=== PATIENT | female | born 2005 | race Caucasian/White ===

== ENCOUNTER 2024-05-07 12:28 | Emergency (ER) | payer SELFPAY ==
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
[2024-05-07 12:34] VITALS: BP 130/70; PULSE 89; RESP 16; TEMP 36.3; O2SAT 99; BMI 32.0
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
[2024-05-07 13:39] LABS: HCG Quantitative < 2 mIU/mL
[2024-05-07] MEDS: Ibuprofen 800 MG TABLET PO (14:23)
[2024-05-07] MEDS: Acetaminophen 325 MG TABLET 975 MG PO (14:24)
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
[2024-05-07 15:11] VITALS: BP 130/70; PULSE 89; RESP 16; TEMP 36.3; O2SAT 99
== END 2024-05-07 15:11 | disposition home or self-care (01) ==
PROVIDERS: Registered Nurse Emergency; Emergency Provider Emergency Medicine Emergency Medical Services
DX: S09.90XA Unspecified injury of head, initial encounter (principal); S93.402A Sprain of unspecified ligament of left ankle, initial encounter; V13.4XXA Pedal cycle driver injured in collision with car, pick-up truck or van in traffic accident, initial encounter; Y93.89 Activity, other specified; Y92.410 Unspecified street and highway as the place of occurrence of the external cause; Y99.9 Unspecified external cause status; M25.561 Pain in right knee; M25.572 Pain in left ankle and joints of left foot; M25.571 Pain in right ankle and joints of right foot
CPT/HCPCS: 36415; 70450; 72125; 73600; 73630; 84702; 96372; 99283; 99284

== ENCOUNTER 2024-05-13 23:00 | Emergency (ER) | payer SELFPAY ==
[2024-05-13 23:14] VITALS: BP 127/81; PULSE 85; RESP 18; TEMP 36.9; O2SAT 99; BMI 32.9
[2024-05-14 01:13] VITALS: BP 105/72; PULSE 77; RESP 16; TEMP 37.1; O2SAT 96
[2024-05-14 03:37] VITALS: BP 121/74; PULSE 89; RESP 16; TEMP 37.1; O2SAT 97
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
[2024-05-14] MEDS: Ketorolac Tromethamine 60 MG/2 ML VIAL IM (06:02)
[2024-05-14 06:19] VITALS: BP 121/74; PULSE 89; RESP 16; TEMP 37.1; O2SAT 97
== END 2024-05-14 06:20 | disposition home or self-care (01) ==
PROVIDERS: Emergency Provider Emergency Medicine
DX: S80.12XA Contusion of left lower leg, initial encounter (principal); V23.49XA Other motorcycle driver injured in collision with car, pick-up truck or van in traffic accident, initial encounter; M79.605 Pain in left leg; M79.604 Pain in right leg; Y93.89 Activity, other specified; Y92.9 Unspecified place or not applicable; Y99.9 Unspecified external cause status
CPT/HCPCS: 96372; 99284; J1885

== ENCOUNTER 2024-06-10 23:56 | Emergency (ER) | payer OTHER, SELFPAY ==
[2024-06-11 00:04] VITALS: BP 114/68; PULSE 73; RESP 18; TEMP 36.5; O2SAT 99; BMI 30.3
[2024-06-11 00:41] LABS: Basophils Absolute Auto 0.1 X10*3/uL (0.0-0.2); Basophils Percent Auto 0.5 % (0-2); Eosinophils Absolute Auto 0.2 X10*3/uL (0.0-0.4); Eosinophils Percent Auto 1.7 % (0-4); Hematocrit 40.6 % (37.0-47.0); Hemoglobin 13.2 g/dl (12.0-16.0); Imm Gran Abs Auto 0.03 X10*3/uL (0.00-0.03); Imm Gran Pct Auto 0.2 % (0.0-0.4); Lymphocytes Absolute Auto 4.6 X10*3/uL (1.2-4.9); Lymphocytes Percent Auto 34.7 % (20-40); MANUAL DIFF FLAG NO; Mean Corpuscular HGB Conc 32.5 g/dl (31.0-35.0); Mean Platelet Volume 9.2 fL (9.4-12.3); Monocytes Absolute Auto 0.9 X10*3/uL (0.1-1.2); Monocytes Percent Auto 6.7 % (2-11); Neutrophils Absolute Auto 7.4 x10*3/uL (2.0-8.3); Neutrophils Percent Auto 56.2 % (45-73); Platelet Count 341 X10*3/uL (160-400); Red Blood Count 4.89 X10*6/uL (4.20-5.50); Red Cell Distribution Width 14.4 % (11.0-16.0); White Blood Count 13.2 X10*3/uL (4.8-10.8)
[2024-06-11 01:03] LABS: Alanine Aminotransferase 14 U/L (0-31); Albumin Level 4.4 g/dL (3.5-5.0); Alkaline Phosphatase 103 U/L (39-117); Anion Gap 14 (12-20); Aspartate Amino Transferase 20 U/L (5-31); Bilirubin Direct 0.2 mg/dL (0.0-0.5); Bilirubin Total 0.9 mg/dL (0.0-1.0); Blood Urea Nitrogen 16 mg/dL (9-16); Calcium 9.5 mg/dL (8.4-10.2); Carbon Dioxide 25 mmol/L (22-29); Chloride 106 mmol/L (96-108); Creatinine Clr Calc Pharmacy 117.3; Estimated Glomerular Filt Rate > 60; Glucose Random 91 mg/dL (60-115); Magnesium 2.2 mg/dL (1.6-2.6); Potassium 4.4 mmol/L (3.3-5.1); Sodium 141 mmol/L (135-145); Total Protein 7.6 g/dL (6.5-8.0)
--- NOTE | 2024-06-11 01:27 | ED.ABDPAIN ---
HPI - Abdominal Pain General Chief Complaint: Abdominal Pain Stated Complaint: abd pain, n/v Time Seen by Provider: 06/11/24 01:20 Source: patient Mode of arrival: ambulatory Limitations: no limitations History of Present Illness ED Provider: clayton MORRELL narrative: Patient can cannabis smoker with history of anxiety been having diffuse abdominal pain for last 1 week with increased flatulence and nausea, patient is not able to eat or hold down anything except some liquids no history of similar abdominal pain in the past last cannabis use was 2 weeks ago Related Data Previous Rx's ?Medication ?Instructions ?Recorded ibuprofen 600 mg tablet 600 mg PO Q6H PRN pain #20 tabs 05/07/24 lidocaine 5 % topical patch 1 patch topical DAILY #15 ea 05/07/24 cyclobenzaprine 5 mg tablet 5 mg PO TID PRN muscle spasm #14 05/14/24 tabs ibuprofen 200 mg capsule 600 mg (3 x 200 mg) PO Q6H PRN 05/14/24 pain #30 caps dicyclomine 20 mg tablet 20 mg PO TID #20 tabs 06/11/24 ondansetron 4 mg disintegrating 4 mg PO Q6-8H PRN nausea and 06/11/24 tablet vomiting #7 tabs Allergies Allergy/AdvReac Type Severity Reaction Status Date / Time gabapentin Allergy Unknown Verified 06/11/24 00:13 risperidone [From Risperdal] Allergy Unknown Verified 06/11/24 00:13 Review of Systems Review of Systems Yes all other systems are reviewed and are negative [facility] Social History Social History Alcohol intake: never Advance Directives: No Advance Directives Information Provided: No Physical Exam ED Vital Signs: Vital Signs - 24 hr 06/11/24 03:34 Temperature 97.9 F Pulse Rate 77 Respiratory Rate 20 Blood Pressure 120/72 Pulse Oximetry 99 Oxygen Delivery Method Room Air BMI result Body Mass Index 30.3 Appearance: Alert. Oriented X3. No acute distress. Anxious Eyes: PERRLA, No Nystagmus ENT: Pharynx normal. Oral Mucosa moist Neck: Normal inspection. Neck supple. CVS: Normal heart rate and rhythm. Pulses normal. Respiratory: No respiratory distress. Equal air entry bilateral, no wheezing/rales/rhonchi Abdomen: Soft and nontender. Bowel sounds are present, no mass palpable, no CVA tenderness diffuse tenderness left side no rebound tenderness or guarding Skin: Skin warm and dry. Normal skin color. Normal skin turgor. Extremities: No lower extremity edema. No calf tenderness Neuro: Oriented X 3. No motor deficit. No sensory deficit.No cerebellar signs , cranial nerves II-XII intact Medical Decision Making Medical Decision Making [facility] Narrative: If nonspecific diffuse abdominal pain with anxiety likely has IBS patient's symptoms improved after dicyclomine Lab Data [facility] Lab Attestation statement: I reviewed the patient's lab results. 06/11/24 00:32 06/11/24 00:32 Labs: Lab Results 06/11/24 06/11/24 Range/Units 00:32 01:50 WBC 13.2 H (4.8-10.8) X10*3/uL RBC 4.89 (4.20-5.50) X10*6/uL Hgb 13.2 (12.0-16.0) g/dl Hct 40.6 (37.0-47.0) % MCV 83.0 (80.0-98.0) fL MCH 27.0 (27.0-33.0) pg MCHC 32.5 (31.0-35.0) g/dl RDW 14.4 (11.0-16.0) % Plt Count 341 (160-400) X10*3/uL MPV 9.2 L (9.4-12.3) fL Immature Gran % (Auto) 0.2 (0.0-0.4) % Neut % (Auto) 56.2 (45-73) % Lymph % (Auto) 34.7 (20-40) % [place] % (Auto) 6.7 (2-11) % Eos % (Auto) 1.7 (0-4) % Baso % (Auto) 0.5 (0-2) % Lymph # (Auto) 4.6 (1.2-4.9) X10*3/uL [place] # (Auto) 0.9 (0.1-1.2) X10*3/uL Eos # (Auto) 0.2 (0.0-0.4) X10*3/uL Baso # (Auto) 0.1 (0.0-0.2) X10*3/uL Abs Immat Gran (auto) 0.03 (0.00-0.03) X10*3/uL Absolute Neuts (auto) 7.4 (2.0-8.3) x10*3/uL Absolute Nucleated RBC 0.000 (0.0-0.012) X10*3/uL Nucleated RBC % (auto) 0.0 (0.0-0.2) /100WBC Sodium 141 (135-145) mmol/L Potassium 4.4 (3.3-5.1) mmol/L Chloride 106 (96-108) mmol/L Carbon Dioxide 25 (22-29) mmol/L Anion Gap 14 (12-20) BUN 16 (9-16) mg/dL Creatinine 0.76 (0.5-1.4) mg/dL Estim Creat Clear Calc 117.3 Estimated GFR > 60 Random Glucose 91 (60-115) mg/dL Calcium 9.5 (8.4-10.2) mg/dL Magnesium 2.2 (1.6-2.6) mg/dL Total Bilirubin 0.9 (0.0-1.0) mg/dL Direct Bilirubin 0.2 (0.0-0.5) mg/dL AST 20 (5-31) U/L ALT 14 (0-31) U/L Alkaline Phosphatase 103 (39-117) U/L Total Protein 7.6 (6.5-8.0) g/dL Albumin 4.4 (3.5-5.0) g/dL Lipase 20 (8-78) U/L Urine Color Yellow Urine Appearance Clear Urine pH 5.5 (5.0-9.0) Ur Specific [place] >= 1.030 H (1.005-1.025) Urine Protein Negative (Neg-Trace) mg/dL Urine Glucose (UA) Negative (Negative) mg/dL Urine Ketones Negative (Negative) mg/dL Urine Blood Negative (Negative) Urine Nitrite Negative (Negative) Ur Leukocyte Esterase Negative (Negative) Urine RBC 0-2 (0-2) /HPF Urine WBC 6-10 H (0-5) /HPF Ur Squamous Epith Cells 6-10 (0-2) /HPF Urine Bacteria 1+ (None Seen) Hyaline Casts 0-2 (0-2) /LPF Urine Test NEGATIVE (NEGATIVE) Medications Administered Discontinued Medications Generic Name Dose Route Start Last Admin Trade Name Freq PRN Reason Stop Dose Admin Dicyclomine HCl 20 mg 06/11/24 01:40 06/11/24 01:55 Dicyclomine Hcl 10 Mg Capsule PO 06/11/24 01:41 20 mg ONCE ONE Administration Ondansetron HCl 4 mg 06/11/24 01:40 06/11/24 01:56 Ondansetron Odt 4 Mg Tab.Mariyadis TRANSLINGU 06/11/24 01:41 4 mg ONCE ONE Administration Discharge Plan Discharge Clinical Impression: Irritable bowel syndrome, Anxiety Patient Disposition: Home, Self-Care Instructions: Irritable Bowel Syndrome (ED), Anxiety (ED) Additional Instructions: Take medication as prescribed Avoid smoking cannabis at it may increase the problem Follow with your PCP Prescriptions: New dicyclomine 20 mg tablet 20 mg PO TID Qty: 20 0RF ondansetron 4 mg tablet,disintegrating 4 mg PO Q6-8H PRN (Reason: nausea and vomiting) Qty: 7 0RF No Action ibuprofen 200 mg capsule 600 mg PO Q6H PRN (Reason: pain) Qty: 30 0RF cyclobenzaprine 5 mg tablet 5 mg PO TID PRN (Reason: muscle spasm) Qty: 14 0RF ibuprofen 600 mg tablet 600 mg PO Q6H PRN (Reason: pain) Qty: 20 0RF lidocaine 5 % adhesive patch,medicated 1 patch topical DAILY Qty: 15 0RF Rx Instructions: leave on most painful area for up to 12 hrs Interventions: ED Discharge Assessment Last Done: 06/11/24 03:34 Discharge Date/Time: 06/11/24 03:36 Print Language: [place]ican
[2024-06-11 01:29] LABS: Lipase 20 U/L (8-78)
[2024-06-11] MEDS: Dicyclomine HCl 10 MG CAPSULE 20 MG PO (01:55)
[2024-06-11] MEDS: Ondansetron ODT 4 MG TAB.RAPDIS TRANSLINGU (01:56)
[2024-06-11 02:04] LABS: Appearance Urine Clear; Color Urine Yellow; Glucose Urine UA Negative (Negative); Leukocyte Esterase Urine Negative (Negative); Nitrite Urine Negative (Negative); PH 5.5 (5.0-9.0); Specific Gravity - Urine >= 1.030 (1.005-1.025); Urine Blood Negative (Negative); Urine Ketones Negative (Negative); Urine Protein Negative (Neg-Trace)
[2024-06-11 02:07] LABS: UPreg QC Valid YES; Urine Pregnancy NEGATIVE (NEGATIVE)
[2024-06-11 02:14] LABS: Bacteria Urine 1+ (None Seen); Hyaline Casts Urine 0-2 /LPF (0-2); RBC Urine 0-2 /HPF (0-2); UACC Culture Trigger YES
[2024-06-11 03:34] VITALS: BP 120/72; PULSE 77; RESP 20; TEMP 36.6; O2SAT 99
== END 2024-06-11 03:36 | disposition home or self-care (01) ==
PROVIDERS: Emergency Medicine; Emergency Provider Internal Medicine
DX: K58.9 Irritable bowel syndrome, unspecified (principal); F41.9 Anxiety disorder, unspecified; R10.9 Unspecified abdominal pain
CPT/HCPCS: 36415; 80053; 81001; 81025; 82248; 83690; 83735; 85025; 87086; 99282; 99283

== ENCOUNTER 2024-09-29 03:56 | Emergency (ER) | payer OTHER, SELFPAY ==
[2024-09-29 04:04] VITALS: BP 122/70; PULSE 91; RESP 20; TEMP 36.2; O2SAT 99; BMI 29.3
[2024-09-29] MEDS: Ondansetron ODT 4 MG TAB.RAPDIS TRANSLINGU (04:10)
[2024-09-29 04:24] LABS: Basophils Absolute Auto 0.1 X10*3/uL (0.0-0.2); Basophils Percent Auto 0.7 % (0-2); Eosinophils Absolute Auto 0.3 X10*3/uL (0.0-0.4); Eosinophils Percent Auto 3.1 % (0-4); Hematocrit 44.6 % (37.0-47.0); Hemoglobin 14.5 g/dl (12.0-16.0); Imm Gran Abs Auto 0.02 X10*3/uL (0.00-0.03); Imm Gran Pct Auto 0.2 % (0.0-0.4); Lymphocytes Absolute Auto 2.7 X10*3/uL (1.2-4.9); Lymphocytes Percent Auto 25.8 % (20-40); MANUAL DIFF FLAG NO; Mean Corpuscular HGB Conc 32.5 g/dl (31.0-35.0); Mean Corpuscular Hemoglobin 27.4 pg (27.0-33.0); Mean Corpuscular Volume 84.2 fL (80.0-98.0); Mean Platelet Volume 9.3 fL (9.4-12.3); Monocytes Absolute Auto 1.1 X10*3/uL (0.1-1.2); Monocytes Percent Auto 10.5 % (2-11); Neutrophils Absolute Auto 6.3 x10*3/uL (2.0-8.3); Neutrophils Percent Auto 59.7 % (45-73); Platelet Count 315 X10*3/uL (160-400); Red Cell Distribution Width 15.6 % (11.0-16.0); White Blood Count 10.5 X10*3/uL (4.8-10.8)
[2024-09-29 04:45] LABS: Alanine Aminotransferase 15 U/L (0-31); Albumin Level 4.5 g/dL (3.5-5.0); Alkaline Phosphatase 100 U/L (39-117); Anion Gap 14 (12-20); Aspartate Amino Transferase 19 U/L (5-31); Bilirubin Total 0.5 mg/dL (0.0-1.0); Blood Urea Nitrogen 23 mg/dL (9-16); Calcium 10.1 mg/dL (8.4-10.2); Carbon Dioxide 28 mmol/L (22-29); Chloride 106 mmol/L (96-108); Creatinine Clr Calc Pharmacy 102.9; Estimated Glomerular Filt Rate > 60; Glucose Random 84 mg/dL (60-115); Potassium 4.7 mmol/L (3.3-5.1); Sodium 143 mmol/L (135-145); Total Protein 8.1 g/dL (6.5-8.0)
[2024-09-29 05:01] LABS: Influenza A PCR NEGATIVE (Negative); Influenza B PCR NEGATIVE (Negative); Resp Syncy Virus RNA Qual PCR NEGATIVE (Negative); SARS COV2 PCR INHOUSE NEGATIVE (Negative)
[2024-09-29 12:21] LABS: HCG Quantitative < 2 mIU/mL
--- OUTSIDE RECORDS SUMMARY | 2024-09-29 14:41 | XMS_ITS | Encounter Summary ---
Author Organization [facility] Address [address] [place] [address] Phone Care Team Providers Care Wire Drawing Die Maker Name Role Phone Latha Evans MD Primary Care Provider [phone] Encounter Details Date Type Department Care Team (Late st Contact Info) Description 05/07/2015 Documentation [facility] [place] Family Medicine [address] [place] [address] Family Medicine, Physician [address] [place], [place] [phone] Social History Tobacco Use Types Packs/Day Years Used Date Smoking Tobacco: Never Assessed Comments Unknown Sex and Gender Information Value Date Recorded Sex Assigned at Female 12/10/2023 6:11 PM EDT Legal Sex Female 5:12 PM EDT Gender Identity Female 12/10/2023 6:11 PM EDT Sexual Orientation Straight 12/10/2023 6: 11 PM EDT documented as of this encounter Plan of Treatment Not on file documented as of this encounter Visit Diagnoses Not on filedocumented in this encounter Care Teams Wire Drawing Die Maker Relationship Specialty Start Date End Date Latha Evans MD [address] [place] [phone] PCP - General Pediatrics 11/26/23 documented as of this encounter
--- OUTSIDE RECORDS SUMMARY | 2024-09-29 14:41 | XMS_ITS | Encounter Summary ---
Author Organization [facility] Address [address] [place] [address] Phone Care Team Providers Care Associate Research Scientist Name Role Phone Latha Evans MD Primary Care Provider [phone] Encounter Details Date Type Department Care Team (Late st Contact Info) Description 06/09/2013 [place]ation [facility] [place] [address] [place] [address] Family Medicine, Physician [address] [place], [place] [phone] Social History Tobacco Use Types Packs/Day Years [...] on filedocumented in this encounter Care Teams Associate Research Scientist Relationship Specialty Start Date End Date Latha Evans MD [address] [place] [address] PCP - General Pediatrics 11/26/23 documented as of this encounter
--- OUTSIDE RECORDS SUMMARY | 2024-09-29 14:41 | XMS_ITS | Encounter Summary ---
Author Organization [facility] Address [address] [place] [address] Phone Care Team Providers Care Assistant Track And Field Coach Name Role Phone Latha Evans MD Primary Care Provider [phone] Encounter Details Date Type Department Care Team (Late st Contact Info) Description 03/26/2017 Conversion Encounter [facility] [place] [place] [address] [place] [address] Social History Tobacco Use Types Packs/Day Years [...] on filedocumented in this encounter Care Teams Assistant Track And Field Coach Relationship Specialty Start Date End Date Latha Evans MD [address] [place] [address] PCP - General Pediatrics 11/26/23 documented as of this encounter
--- OUTSIDE RECORDS SUMMARY | 2024-09-29 14:41 | XMS_ITS | Encounter Summary ---
Author Organization [facility] Address [address] [place] [address] Phone Care Team Providers Care Health Information Director Name Role Phone Latha Evans MD Primary Care Provider [phone] Encounter Details Date Type Department Care Team (Late st Contact Info) Description 06/09/2013 Documentation [facility] [place] Family Medicine [address] [place] [address] Family Medicine, Physician [address] [place], [place] [phone] Social History Tobacco Use Types Packs/Day Years [...] on filedocumented in this encounter Care Teams Health Information Director Relationship Specialty Start Date End Date Latha Evans MD [address] [place] [id number] PCP - General Pediatrics 11/26/23 documented as of this encounter
--- OUTSIDE RECORDS SUMMARY | 2024-09-29 14:41 | XMS_ITS | Clinical Summary ---
Author Organization [facility] Address [address] [place] [address] Phone Care Team Providers Care Pyrotechnic Mixer Name Role Phone Latha Evans MD Primary Care Provider [phone] Allergies Active Allergy Reactions Criticality Noted Date Comments Amphetamine-Dextroamphetamine Low 2017 Tics Sertraline Medium 02/11/2018 Increased SI Medications fluticasone 50 MCG/ACT nasal sprayIndication s:Chronic nasal congestion Administer 1 spray into each nostril daily. 1 mL 5 4 12/10/19 25 Active Active Problems Problem Noted Date Diagnosed Date Gastroesophageal reflux disease without esophagi tis 12/10/2023 Assessment & Plan (12/10/2023 6:17 PM EDT): Plan: - Small frequent meals - Manage stress and anxiousness - Start - Omeprazole 20 mg daily - Avoid trigger foods - Follow up 1 month Ligamentous laxity of left ankle 12/10/2023 Assessment & Plan (12/10/2023 6:13 PM EDT): Refer to PT Anxiety and depression 12/10/2023 Overview (12/15/2023): 12/10/2023 [facility] with Flory - Met with pt - presents with significant anxiety, depression, and trauma-related symptoms. [facility] to provide bridge support services. Assessment & Plan (12/10/2023 6:15 PM EDT): ANABEL Guidry, PhD - follow up scheduled for 12/14 Chronic nasal congestion 12/10/2023 Assessment & Plan (12/10/2023 6:18 PM EDT): Trial Flonase Recheck in 1 month Myopia of both eyes 09/27/2021 Overview (09/27/2021): 09/27/21 20/70 bilat; mom gives referral contact for optom to self schedule Assessment & Plan (09/27/2021 6:16 PM EST): 09/27/21 20/70 bilat; mom gives referral contact for optom to self schedule Acne vulgaris 04/26/2017 Overview (03/29/2020): 04/2019: Rx-Clindamycin 1% gel and Tretinoin 0.025% gel Menorrhagia with irregular cycle 01/01/2016 Overview (09/27/2021): 09/27/21; irregular,frequent, mood changes, painful; lab for PCOS ordered f/u in 1 mo to discuss 12/2015 10 yrs- Menorrhagia - Normal CBC,pt/aptt, WVP, TSH and ft4 02/2018 12 yrs-Dysmenorrhea, heavy menses- levonorgestrel 0.15/30 EE filled x 1- no f/up 04/2019 14 yrs [facility] Cycles regular, 5 day flow, no pain Assessment & Plan (12/10/2023 6:21 PM EDT): Recommend keeping a log of menstrual cycle Condoms given Strongly recommend consistent condom use Recheck in 3 to 4 months. 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 09/15/2012 Overview (09/27/2021): BMI 33.9; obesity labs ordered received covid vax x 2 firmly declines Booster until vax is out for longer undefined period of time; excess screen time 8-10 hrs per day Wt fluctuated in childhood, but apporx 75%, with rapid acceleration after age 10 to current /last 04/2019 :BMI 30.8/98% Assessment & Plan (09/27/2021 6:28 PM EST): BMI 33.9;obesity labs ordered received covid vax x 2 firmly declines Booster until vax is out for longer undefined period of time excess screen time 8-10 hrs per day Conduct disorder 09/12/2011 PTSD (post-traumatic stress disorder) 09/12/2011 Overview (09/27/2021): 09/27/21-No longer under the care of [facility]; stopped meds 1 yr ago did not like being on them; PSC score is 17 PHQ9-score 15 passive SI; decline BH support:+crisis contacts Assessment & Plan (09/27/2021 6:17 PM EST): No longer under the care of [facility]; stopped meds 1 yr ago did not like being on them; PSC score is 17 PHQ9-score 15 passive SI; decline BH support +crisis contacts Resolved Problems Problem Noted Date Diagnosed Date Resolved Date Headache in pediatric patient 09/27/2021 12/10/2023 Overview (09/27/2021): 09/27/21-lost to well child care group leader >20 yr; [address] [facility] Headache diary; pt wants to be on control There are other unrelated non-urgent complaints, but due to the busy schedule and the amount of time I've already spent with her, time does not permit me to address these routine issues at today's visit. I've requested another appointment to review these additional issues. Assessment & Plan (09/27/2021 6:07 PM EST): 09/27/21-lost to well child care group leader >20 yr; [address] [facility] Headache diary; pt wants to be on control There are other unrelated non-urgent complaints, but due to the busy schedule and the amount of time I've already spent with her, time does not permit me to address these routine issues at today's visit. I've requested another appointment to review these additional issues. Immunizations Immunization Administration Dates Next Due DTaP 05/24/2009, 7,06/25/2005,05/08,01/20/2005 HPV Vaccine 9 Valent 02/11/2018,12/16/2016 Hep A, ped/adol 09/23/2013,11/27/2006 Hep B, ped/adol 07/08/2005,05/08/2005,2004 Hib (HbOC) 11/27/2006, 5,05/08/2005,01/20 IPV 05/24/2009, 5,05/08/2005,01/20 Influenza Split 09/01/2012,09/12/2011 Influenza, injectable, quadrivalent 10/19/2015 Influenza, injectable, quadr ivalent, preservative free 09/27/2021,04/26/2019,04/14/2014,09/23 MMR 05/24/2009,11/27/2006 Meningococcal B Trumenba 12/10/2023 Meningococcal Conj (Menactra) MCV4P 09/27/2021,0 12/16/2016 Pneumococcal Conjugate 11/27/2006,2004,05/08/2005,01/20 Tdap 12/16/2016 Varicella 09/12/2011,11/27/2006 Family History Relation Name Status Comments Mother Alive morbid obesity; PCOS Social History Tobacco Use Types Packs/Day Years Used Date Smoking Tobacco: Never Smokeless Tobacco: Never Alcohol Use Standard Drinks/Week Comments Never 0 (1 standard drink = 0.6 oz pur e alcohol) Hunger/Food Answer Date Recorded In the last 12 months, did y ou or your family ever eat less than you felt you should because there wasn't enough money for food? No 12/25/2023 Stable Housing Answer Date Recorded Are you worried that in the next 2 months you may not have stable housing? No 12/25/2023 Transportation Concerns Answer Date Rec orded In the last 12 months, have you or your family ever had to go without healthcare because you didn't have a way to get there? No 12/25/2023 Hazards in Home Answer Date Recorded Think about the place you li ve. Do you have problems with any of the following? Pests (mice or roaches), mold, no/not working smoke detectors, water leaks, no window guards. No 2023 Financing Utilities Answer Date Recorde d In the last 12 months, has t he electric, gas, oil, or water company threatened to shut off your services in your home? No 12/25/2023 Safety at Home Answer Date Recorded Are you or your family worried about feeling saf e in your home? No 12/25/2023 Outside Support Answer Date Recorded Do you feel that you need mo re support from other people or programs to help you care for yourself or your family? No 12/25/2023 Understanding Health Concerns Answer Da te Recorded Do you need help understandi ng your or your child's healthcare needs (diagnosis, medications, plan, etc.)? No 12/25/2023 Financing Health Concerns Answer Date R ecorded In the last 12 months, was t here a time when your child needed to see a doctor or get medications or supplies but could not because of cost? No 12/25/2023 Missing School or Work Answer Date Molina rded Did you or your child miss s chool or work because of a health problem that could have been avoided? No 12/25/2023 Child Education Answer Date Recorded Do you have concerns about y our/your child's learning or behavior in school, preschool, or daycare? No 12/25/2023 Comments No Sex and Gender Information Value Date Recorded Sex Assigned at Female 12/10/2023 6:11 PM EDT Legal Sex Female 5:12 PM EDT Gender Identity Female 12/10/2023 6:11 PM EDT Sexual Orientation Straight 12/10/2023 6: 11 PM EDT Last Filed Vital Signs Vital Sign Reading Time Taken Comments Blood Pressure 127/61 12/10/2023 3:01 PM EDT Pulse 80 12/10/2023 3:01 PM EDT Temperature 36.1 ??C (97 ??F) 09/27/2021 3:33 PM EST Respiratory Rate - - Oxygen Saturation 95% 04/22/2012 12:00 AM EDT Inhaled Oxygen Concentration - - Weight 87.5 kg (193 lb) 12/10/2023 3:01 PM EDT Height 160 cm (5' 3 ) 12/10/2023 3:01 PM EDT Body Mass Index 34.19 12/10/2023 3:01 PM EDT Plan of Treatment Health Maintenance Due Date Last Done Comments HIV Screening 11/10/2019 Hepatitis C Screening 2022 Influenza Vaccines (#1) 2024 09/27/19 22, 04/26/2019, 10/19/2015, Additional history exists COVID-19 Vaccine (3 - 2023-2 5 season) 2024 02/19/2021, 01/29/2021 Men B Vaccine (2 of 2 - Trum enba SCDM 2-dose series) 06/11/2024 12/10/2023 Chlamydia and Gonorrhea Screening 08/10/2024 024, 09/27/2021 DTaP,Tdap,and Td Vaccines (7 - Td or Tdap) 12/16/2026 12/16/2016, 05/24/2009, 11/27/2006, Additional history exists Hepatitis B Vaccines Completed 07/08/2005, 05/08/2005, 2004 HIB Vaccines Completed 11/27/2006, 06/10, 05/08/2005, Additional history exists Pneumococcal Vaccine Completed 11/27/2006, 06/25/2005, 05/08/2005, Additional history exists IPV Vaccines Completed 05/24/2009, 06/10, 05/08/2005, Additional history exists MMR Vaccines Completed 05/24/2009, 11/27/2006 Varicella Vaccines Completed 09/12/2011, 11/27/2006 Hepatitis A Vaccines Completed 09/23/2013, 11/28/19 07 HPV Vaccines Completed 02/11/2018, 12/16/2016 Meningococcal Vaccine Completed 09/27/2021, 017 Procedures * Due to [place] [employer] law, this organization might not be sharing sensitive test results. Procedure Name Priority Date/Time Associated Diagnosis Comments CHLAMYDIA AND GONORRHEA, AMPLIFIED Routine 12/10/2023 3:53 PM EDT Encounter for screening examination for sexually transmitted disease from Last 3 Months or Most Recently Relevant to Health Maintenance Results * Due to [place] state law, this organization might not be sharing sensitive test results. * Chlamydia and Gonorrhea, Amplified (12/10/2023 3:53 PM EDT) C trach JAIDA Negative Negative [facility] N gonorrhoeae JAIDA Negative Negative [facility] Urine (Urine) 12/10/2023 3:5 3 PM EDT 12/10/2023 Comment:UR Narrative [facility] - 12/12/2023 9:06 PM EDT Performed at: ??01 - [facility] [address] ??[id number] Inside Sales Consultant: Ghazala Starks MD, Phone: ??[phone] us Latha Evans MD LAB MICROBIOLOGY - GENERAL ORD ERABLES Final Result [facility] [address] [place] [address] from Last 3 Months or Most Recently Relevant to Health Maintenance [place] [address] [place] [address] NON PCC [facility] [employer] [facility] NON PCC Care Teams Pyrotechnic Mixer Relationship Specialty Start Date End Date Latha Evans MD [address] [place] [id number] PCP - General Pediatrics 11/26/23
--- OUTSIDE RECORDS SUMMARY | 2024-09-29 14:41 | XMS_ITS | Encounter Summary ---
Author Organization [facility] Address [address] [place] [address] Phone Care Team Providers Care Child Welfare Counselor Name Role Phone Latha Evans MD Primary Care Provider [phone] Encounter Details Date Type Department Care Team (Late st Contact Info) Description 07/17/2015 [place] [facility] [place] [address] [place] [address] Family Medicine, Physician [address] [place], [place] [phone] Social History Tobacco Use Types Packs/Day Years [...] on filedocumented in this encounter Care Teams Child Welfare Counselor Relationship Specialty Start Date End Date Latha Evans MD [address] [place] [phone] PCP - General Pediatrics 11/26/23 documented as of this encounter
--- OUTSIDE RECORDS SUMMARY | 2024-09-29 14:41 | XMS_ITS | Encounter Summary ---
Author Organization [facility] Address [address] [place] [address] Phone Care Team Providers Care Warehouse And Receiving Supervisor Name Role Phone Latha Evans MD Primary Care Provider [phone] Encounter Details Date Type Department Care Team (Late st Contact Info) Description 07/12/2015 Documentation [facility] [place] Family Medicine [address] [place] [address] Family Medicine, Physician [address] [place], [place] [phone] Social History Tobacco Use Types Packs/Day Years [...] on filedocumented in this encounter Care Teams Warehouse And Receiving Supervisor Relationship Specialty Start Date End Date Latha Evans MD [address] [place] [id number] PCP - General Pediatrics 11/26/23 documented as of this encounter
--- OUTSIDE RECORDS SUMMARY | 2024-09-29 14:41 | XMS_ITS | Encounter Summary ---
Author Organization [facility] Address [address] [place] [address] Phone Care Team Providers Care Ground Operations Superintendent Name Role Phone Latha Evans MD Primary Care Provider [phone] Encounter Details Date Type Department Care Team (Late st Contact Info) Description 07/16/2015 [place] [facility] [place] [address] [place] [address] Family Medicine, Physician [address] [place], [place] [phone] Social History Tobacco Use Types Packs/Day Years [...] on filedocumented in this encounter Care Teams Ground Operations Superintendent Relationship Specialty Start Date End Date Latha Evans MD [address] [place] [phone] PCP - General Pediatrics 11/26/23 documented as of this encounter
--- OUTSIDE RECORDS SUMMARY | 2024-09-29 14:41 | XMS_ITS | Encounter Summary ---
Author Organization [facility] Address [address] [place] [address] Phone Care Team Providers Care Ore Grader Name Role Phone Latha Evans MD Primary Care Provider [phone] Encounter Details Date Type Department Care Team (Late st Contact Info) Description 09/12/2011 Document[place] [facility] [place] [address] [place] [address] Family Medicine, Physician [address] [place] [address] Social History Tobacco Use Types Packs/Day Years [...] on filedocumented in this encounter Care Teams Ore Grader Relationship Specialty Start Date End Date Latha Evans MD [address] [place] [id number] PCP - General Pediatrics 11/26/23 documented as of this encounter
== END 2024-09-29 13:57 | disposition left against medical advice (07) ==
PROVIDERS: Physician Assistant Medical; Emergency Provider Emergency Medicine
DX: R11.2 Nausea with vomiting, unspecified (principal); R10.2 Pelvic and perineal pain; Z03.818 Encounter for observation for suspected exposure to other biological agents ruled out
CPT/HCPCS: 0241U; 80053; 84702; 85025; 99281

== ENCOUNTER 2025-01-20 08:17 | Outpatient (AMB) | payer OTHER, SELFPAY ==
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
--- OUTSIDE RECORDS SUMMARY | 2025-01-20 08:24 | XMS_ITS | Encounter Summary ---
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 Name Role Phone Latha Evans MD Primary Care Provider [phone] Encounter Details Date Type Department Care Team (Late st Contact Info) Description 09/12/2011 Documentation [facility] [place] Family Medicine [address] [place] [address] Family Medicine, Physician [address] [place] [address] Social History Tobacco Use Types [...] on filedocumented in this encounter Care Teams Reeling And Tubing Machine Operator Relationship Specialty Start Date End Date Latha Evans MD [address] [place] [id number] PCP - General Pediatrics 11/26/23 documented as of this encounter
== END 2025-01-20 09:22 | disposition home or self-care (01) ==
LOC: HO.HOS 08:18
PROVIDERS: Visit Provider Physician Assistant
DX: S93.402A Sprain of unspecified ligament of left ankle, initial encounter (principal)
CPT/HCPCS: 99203; G2211

== ENCOUNTER → 2025-01-20 08:17 | Outpatient (BNVA) | payer OTHER, SELFPAY | PROVIDERS: Visit Provider Physician Assistant ==